=== PATIENT | female | born 1940 | race Caucasian/White ===

== ENCOUNTER → 2023-06-27 10:19 | Outpatient (REF) | payer MEDICARE, OTHER, SELFPAY ==
[2023-06-27 11:28] LABS: Hematocrit 35.2 % (37.0-47.0); Hemoglobin 11.5 g/dL (12.0-16.0); Mean Corp Hgb Conc. 32.7 g/dL (33.0-37.0); Mean Corpuscular Hgb 33.6 pg (27.0-31.0); Mean Corpuscular Volume 102.9 fL (81.0-99.0); Mean Platelet Volume 11.9 fL (7.4-10.4); Platelet Count 528 10^3/uL (130-400); Red Blood Cell Count 3.42 10^6/uL (4.20-5.40); Red Cell Dist. Width 13.8 % (11.5-14.5); White Blood Cell Count 9.9 10^3/uL (4.8-10.8)
== END ==
LOC: OLABN 10:19
PROVIDERS: ATTENDING PHYSICIAN Student in an Organized Health Care Education/Training Program
DX: M62.81 Muscle weakness (generalized) (principal)
CPT/HCPCS: 36415; 85027

== ENCOUNTER → 2023-11-26 12:09 | Outpatient (REF) | payer MEDICARE, OTHER, SELFPAY ==
[2023-11-26 13:54] LABS: Hematocrit 35.4 % (37.0-47.0); Hemoglobin 11.3 g/dL (12.0-16.0); Mean Corp Hgb Conc. 31.9 g/dL (33.0-37.0); Mean Corpuscular Hgb 32.7 pg (27.0-31.0); Mean Corpuscular Volume 102.3 fL (81.0-99.0); Mean Platelet Volume 11.9 fL (7.4-10.4); Platelet Count 554 10^3/uL (130-400); Red Blood Cell Count 3.46 10^6/uL (4.20-5.40); Red Cell Dist. Width 14.3 % (11.5-14.5); White Blood Cell Count 8.4 10^3/uL (4.8-10.8)
[2023-11-26 14:47] LABS: HDL Cholesterol 38 mg/dl; LDL Cholesterol, Calculated 40 mg/dl; Total Cholesterol 96 mg/dl (50-199); Triglyceride 92 mg/dl (10-149); Very Low Density Lipoprotein 18 mg/dl (0-30)
[2023-11-27 09:07] LABS: Glycohemoglobin (HgbA1c) 5.5 % (4.0-5.6)
== END ==
LOC: OLABN 12:09
PROVIDERS: ATTENDING PHYSICIAN Student in an Organized Health Care Education/Training Program
DX: E78.5 Hyperlipidemia, unspecified (principal); R10.0 Acute abdomen; Z79.84 Long term (current) use of oral hypoglycemic drugs
CPT/HCPCS: 80061; 83036; 85027

== ENCOUNTER → 2023-11-28 10:03 | Outpatient (REF) | payer MEDICARE, OTHER, SELFPAY ==
[2023-11-28 13:58] LABS: Iron 56 ug/dl (37-170)
[2023-11-28 14:08] LABS: Percent Saturation 21 % (20-50); Total Iron Binding Capacity 261 ug/dl (265-497)
[2023-11-28 14:53] LABS: Vitamin B12 490 pg/ml (239-931)
== END ==
LOC: OLABN 10:03
PROVIDERS: ATTENDING PHYSICIAN Student in an Organized Health Care Education/Training Program
DX: R83.8 Other abnormal findings in cerebrospinal fluid (principal); D51.0 Vitamin B12 deficiency anemia due to intrinsic factor deficiency; E53.8 Deficiency of other specified B group vitamins; E53.1 Pyridoxine deficiency
CPT/HCPCS: 36415; 82607; 83540; 83550; 84207

== ENCOUNTER → 2023-12-28 10:26 | Outpatient (REF) | payer MEDICARE, OTHER, SELFPAY ==
[2023-12-28 11:01] LABS: % Basophils 1.5 % (0-2); % Immature Granulocytes 0.2 % (0-0.5); % Lymphocytes 35.5 % (20.5-51.1); % Monocytes 8.2 % (1.7-9.3); % Neutrophils 50.6 % (42.2-75.2); Absolute Basophils 0.1 10^3/uL (0-0.2); Absolute Eosinophils 0.4 10^3/uL (0-0.7); Absolute Lymphocytes 3.3 10^3/uL (1.2-3.4); Absolute Monocytes 0.8 10^3/uL (0.1-0.6); Absolute Neutrophils 4.6 10^3/uL (1.4-6.5); Hematocrit 35.9 % (37.0-47.0); Hemoglobin 11.7 g/dL (12.0-16.0); Mean Corp Hgb Conc. 32.6 g/dL (33.0-37.0); Mean Corpuscular Hgb 32.9 pg (27.0-31.0); Mean Corpuscular Volume 100.8 fL (81.0-99.0); Mean Platelet Volume 12.4 fL (7.4-10.4); Nucleated Red Blood Cells % 0 %; Platelet Count 593 10^3/uL (130-400); Red Blood Cell Count 3.56 10^6/uL (4.20-5.40); Red Cell Dist. Width 14.4 % (11.5-14.5); White Blood Cell Count 9.2 10^3/uL (4.8-10.8)
[2023-12-28 11:59] LABS: Vitamin B12 480 pg/ml (239-931)
== END ==
LOC: OLABN 10:26
PROVIDERS: ATTENDING PHYSICIAN Student in an Organized Health Care Education/Training Program
DX: E53.1 Pyridoxine deficiency (principal); E78.5 Hyperlipidemia, unspecified; D51.9 Vitamin B12 deficiency anemia, unspecified
CPT/HCPCS: 36415; 82607; 84207; 85025

== ENCOUNTER → 2024-01-08 09:18 | Outpatient (REF) | payer MEDICARE, OTHER, SELFPAY ==
[2024-01-08 13:02] LABS: Folate 10.4 ng/ml (2.76-20)
== END ==
LOC: OLABN 09:18
PROVIDERS: ATTENDING PHYSICIAN Student in an Organized Health Care Education/Training Program
DX: D75.838 Other thrombocytosis (principal); Z79.899 Other long term (current) drug therapy
CPT/HCPCS: 36415; 82746

== ENCOUNTER → 2024-01-18 16:07 | Outpatient (REF) | payer MEDICARE, OTHER, SELFPAY ==
[2024-01-18 15:03] LABS: % Immature Granulocytes 0.4 % (0-0.5); % Lymphocytes 20.2 % (20.5-51.1); % Monocytes 7.2 % (1.7-9.3); % Neutrophils 68.2 % (42.2-75.2); Absolute Basophils 0.1 10^3/uL (0-0.2); Absolute Eosinophils 0.3 10^3/uL (0-0.7); Absolute Lymphocytes 2.1 10^3/uL (1.2-3.4); Absolute Monocytes 0.8 10^3/uL (0.1-0.6); Absolute Neutrophils 7.1 10^3/uL (1.4-6.5); Hematocrit 37.9 % (37.0-47.0); Hemoglobin 12.9 g/dL (12.0-16.0); Mean Corpuscular Hgb 33.9 pg (27.0-31.0); Mean Corpuscular Volume 99.7 fL (81.0-99.0); Mean Platelet Volume 11.2 fL (7.4-10.4); Nucleated Red Blood Cells % 0 %; Platelet Count 530 10^3/uL (130-400); Red Cell Dist. Width 14.1 % (11.5-14.5); White Blood Cell Count 10.4 10^3/uL (4.8-10.8)
[2024-01-18 15:15] LABS: Erythrocyte Sed Rate 35 mm/hour (0-20)
[2024-01-18 15:25] LABS: Iron 82 ug/dl (37-170)
[2024-01-18 15:34] LABS: Percent Saturation 29 % (20-50); Total Iron Binding Capacity 280 ug/dl (265-497)
[2024-01-18 16:02] LABS: Ferritin 13.6 ng/ml (11.1-264.0)
== END ==
LOC: OIDL 16:07
PROVIDERS: ATTENDING PHYSICIAN Nurse Practitioner Family
DX: D75.89 Other specified diseases of blood and blood-forming organs (principal); D51.9 Vitamin B12 deficiency anemia, unspecified
CPT/HCPCS: 82728; 83540; 83550; 85025; 85652

== ENCOUNTER → 2024-06-02 10:36 | Outpatient (REF) | payer MEDICARE, OTHER, SELFPAY ==
[2024-06-02 11:19] LABS: Hematocrit 37.3 % (37.0-47.0); Hemoglobin 11.4 g/dL (12.0-16.0); Mean Corp Hgb Conc. 30.6 g/dL (33.0-37.0); Mean Corpuscular Hgb 32.7 pg (27.0-31.0); Mean Corpuscular Volume 106.9 fL (81.0-99.0); Mean Platelet Volume 12.1 fL (7.4-10.4); Platelet Count 529 10^3/uL (130-400); Red Blood Cell Count 3.49 10^6/uL (4.20-5.40); Red Cell Dist. Width 14.1 % (11.5-14.5); White Blood Cell Count 9.9 10^3/uL (4.8-10.8)
[2024-06-02 11:29] LABS: ALT (SGPT) 19 U/L (0-35); AST (SGOT) 23 U/L (14-36); Albumin 3.4 g/dl (3.5-5.0); Alkaline Phosphatase 81 U/L (38-126); Blood Urea Nitrogen 23 mg/dl (7-17); Carbon Dioxide 28 mmol/L (22-30); Chloride 104 mmol/L (98-107); Glucose 78 mg/dl (70-99); HDL Cholesterol 41 mg/dl; LDL Cholesterol, Calculated 50 mg/dl; Potassium 4.7 mmol/L (3.5-5.1); Sodium 140 mmol/L (135-145); Total Bilirubin 0.6 mg/dl (0.2-1.3); Total Cholesterol 105 mg/dl (50-199); Total Protein 6.4 g/dl (6.3-8.2); Triglyceride 72 mg/dl (10-149); Very Low Density Lipoprotein 14 mg/dl (0-30); eGFR > 60.00
[2024-06-02 14:39] LABS: Glycohemoglobin (HgbA1c) 5.6 % (4.0-5.6)
== END ==
LOC: OLABN 10:36
PROVIDERS: ATTENDING PHYSICIAN Student in an Organized Health Care Education/Training Program
DX: E78.5 Hyperlipidemia, unspecified (principal); R10.0 Acute abdomen; R73.01 Impaired fasting glucose
CPT/HCPCS: 36415; 80053; 80061; 83036; 85027

== ENCOUNTER → 2024-07-22 15:05 | Outpatient (REF) | payer MEDICARE, OTHER, SELFPAY ==
[2024-07-22 16:47] LABS: Urine Albumin 1+ (Neg - Trace); Urine Bilirubin Negative (Negative); Urine Character Clear (Clear); Urine Color Yellow; Urine Glucose Negative (Negative); Urine Ketone Negative (Negative); Urine Leukocyte 3+ (Negative); Urine Nitrite Positive (Negative); Urine Occult Blood 1+ (Negative); Urine Urobilinogen Negative (Neg - 1+); Urine pH 6.5 (5.0-9.0)
[2024-07-22 16:57] LABS: Urine Squamous Cell >30 /LPF (Few); Urine White Cell 30-40 /HPF (0-5)
[2024-07-22 16:58] LABS: Urine Bacteria Many (Negative)
== END ==
LOC: OLABN 15:05
PROVIDERS: ATTENDING PHYSICIAN Student in an Organized Health Care Education/Training Program
DX: R30.0 Dysuria (principal)
CPT/HCPCS: 81003; 81015; 87077; 87086; 87186

== ENCOUNTER → 2024-09-25 13:30 | Outpatient (REF) | payer MEDICARE, OTHER, SELFPAY ==
[2024-09-25 17:04] LABS: Urine Albumin Negative (Neg - Trace); Urine Bilirubin Negative (Negative); Urine Character Slightly Cloudy (Clear); Urine Color Yellow; Urine Glucose Negative (Negative); Urine Ketone Negative (Negative); Urine Leukocyte 3+ (Negative); Urine Nitrite Negative (Negative); Urine Occult Blood Negative (Negative); Urine Specific Gravity 1.015 (<1.030); Urine Urobilinogen Negative (Neg - 1+)
[2024-09-25 17:17] LABS: Urine Bacteria Many (Negative); Urine Red Blood Cell 0-2 /HPF (0-2); Urine Squamous Cell >30 /LPF (Few)
== END ==
LOC: OLABN 13:30
PROVIDERS: ATTENDING PHYSICIAN Student in an Organized Health Care Education/Training Program
DX: R10.9 Unspecified abdominal pain (principal)
CPT/HCPCS: 81003; 81015; 87086

== ENCOUNTER → 2024-11-12 09:37 | Outpatient (REF) | payer MEDICARE, OTHER, SELFPAY ==
[2024-11-12 11:22] LABS: ALT (SGPT) 26 U/L (0-35); AST (SGOT) 25 U/L (14-36); Albumin 3.4 g/dl (3.5-5.0); Alkaline Phosphatase 89 U/L (38-126); Blood Urea Nitrogen 24 mg/dl (7-17); Calcium 8.9 mg/dl (8.4-10.2); Carbon Dioxide 26 mmol/L (22-30); Chloride 109 mmol/L (98-107); Glucose 84 mg/dl (70-99); Potassium 5.1 mmol/L (3.5-5.1); Sodium 140 mmol/L (135-145); Total Protein 6.4 g/dl (6.3-8.2); eGFR > 60.00
== END ==
LOC: OLABN 09:37
PROVIDERS: ATTENDING PHYSICIAN Student in an Organized Health Care Education/Training Program
DX: R10.0 Acute abdomen (principal); M62.81 Muscle weakness (generalized)
CPT/HCPCS: 36415; 80053

== ENCOUNTER → 2024-12-01 12:08 | Outpatient (REF) | payer MEDICARE, OTHER, SELFPAY ==
[2024-12-01 13:04] LABS: Hematocrit 36.8 % (37.0-47.0); Hemoglobin 11.6 g/dL (12.0-16.0); Mean Corp Hgb Conc. 31.5 g/dL (33.0-37.0); Mean Corpuscular Volume 104.0 fL (81.0-99.0); Platelet Count 524 10^3/uL (130-400); Red Cell Dist. Width 14.5 % (11.5-14.5)
[2024-12-01 13:32] LABS: ALT (SGPT) 31 U/L (0-35); AST (SGOT) 24 U/L (14-36); Albumin 3.5 g/dl (3.5-5.0); Alkaline Phosphatase 77 U/L (38-126); Blood Urea Nitrogen 26 mg/dl (7-17); Calcium 8.9 mg/dl (8.4-10.2); Carbon Dioxide 26 mmol/L (22-30); Chloride 109 mmol/L (98-107); Glucose 80 mg/dl (70-99); HDL Cholesterol 38 mg/dl; LDL Cholesterol, Calculated 48 mg/dl; Potassium 4.9 mmol/L (3.5-5.1); Sodium 138 mmol/L (135-145); Total Protein 6.5 g/dl (6.3-8.2); Very Low Density Lipoprotein 18 mg/dl (0-30); eGFR > 60.00
[2024-12-01 13:33] LABS: Glycohemoglobin (HgbA1c) 5.7 % (4.0-5.6)
== END ==
LOC: OLABN 12:08
PROVIDERS: ATTENDING PHYSICIAN Student in an Organized Health Care Education/Training Program
DX: M62.81 Muscle weakness (generalized) (principal); E78.5 Hyperlipidemia, unspecified; R10.9 Unspecified abdominal pain; R10.2 Pelvic and perineal pain; R73.01 Impaired fasting glucose
CPT/HCPCS: 36415; 80053; 80061; 83036; 85027

== ENCOUNTER → 2024-12-17 13:27 | Outpatient (REF) | payer MEDICARE, OTHER, SELFPAY ==
[2024-12-18 13:19] LABS: Urine Character Slightly Cloudy (Clear)
[2024-12-18 14:15] LABS: Urine Squamous Cell >30 /LPF (Few)
[2024-12-18 14:17] LABS: Urine White Cell 16-20 /HPF (0-5)
[2024-12-18 14:18] LABS: Urine Red Blood Cell 0-2 /HPF (0-2)
== END ==
LOC: OLABN 13:27
PROVIDERS: ATTENDING PHYSICIAN Student in an Organized Health Care Education/Training Program
DX: R10.30 Lower abdominal pain, unspecified (principal)
CPT/HCPCS: 81003; 81015; 87086

== ENCOUNTER → 2024-12-21 10:19 | Outpatient (REF) | payer MEDICARE, OTHER, SELFPAY ==
[2024-12-21 12:26] LABS: Urine Character Clear (Clear)
[2024-12-21 13:09] LABS: Urine Red Blood Cell 0-2 /HPF (0-2)
== END ==
LOC: OLABN 10:19
PROVIDERS: ATTENDING PHYSICIAN Student in an Organized Health Care Education/Training Program
DX: R10.30 Lower abdominal pain, unspecified (principal); R30.0 Dysuria
CPT/HCPCS: 81003; 81015; 87077; 87086

== ENCOUNTER → 2025-01-06 12:30 | Outpatient (REF) | payer MEDICARE, OTHER, SELFPAY ==
[2025-01-06 17:21] LABS: Urine Character Slightly Cloudy (Clear)
[2025-01-06 17:30] LABS: Urine Red Blood Cell 0-2 /HPF (0-2); Urine White Cell 21-25 /HPF (0-5)
== END ==
LOC: OLABN 12:30
PROVIDERS: ATTENDING PHYSICIAN Student in an Organized Health Care Education/Training Program
DX: R30.0 Dysuria (principal); R10.2 Pelvic and perineal pain
CPT/HCPCS: 81003; 81015; 87086; 87088

== ENCOUNTER → 2025-01-13 10:30 | Outpatient (REF) | payer MEDICARE, OTHER, SELFPAY ==
[2025-01-13 11:43] LABS: ALT (SGPT) 23 U/L (0-35); AST (SGOT) 24 U/L (14-36); Albumin 3.5 g/dl (3.5-5.0); Alkaline Phosphatase 76 U/L (38-126); Blood Urea Nitrogen 22 mg/dl (7-17); Calcium 8.8 mg/dl (8.4-10.2); Carbon Dioxide 26 mmol/L (22-30); Chloride 113 mmol/L (98-107); Glucose 86 mg/dl (70-99); Potassium 4.8 mmol/L (3.5-5.1); Sodium 142 mmol/L (135-145); Total Protein 6.4 g/dl (6.3-8.2); eGFR > 60.00
== END ==
LOC: OLABN 10:30
PROVIDERS: ATTENDING PHYSICIAN Student in an Organized Health Care Education/Training Program
DX: R10.0 Acute abdomen (principal); M62.81 Muscle weakness (generalized)
CPT/HCPCS: 36415; 80053

== ENCOUNTER → 2025-01-20 09:13 | Outpatient (REF) | payer MEDICARE, OTHER, SELFPAY ==
[2025-01-20 09:47] LABS: Hematocrit 37.0 % (37.0-47.0); Hemoglobin 11.9 g/dL (12.0-16.0); Mean Corp Hgb Conc. 32.2 g/dL (33.0-37.0); Mean Corpuscular Volume 103.6 fL (81.0-99.0); Nucleated Red Blood Cells % 0 %; Platelet Count 528 10^3/uL (130-400); Red Cell Dist. Width 13.9 % (11.5-14.5)
[2025-01-20 13:47] LABS: ALT (SGPT) 18 U/L (0-35); AST (SGOT) 21 U/L (14-36); Albumin 3.7 g/dl (3.5-5.0); Alkaline Phosphatase 76 U/L (38-126); Blood Urea Nitrogen 18 mg/dl (7-17); Calcium 9.5 mg/dl (8.4-10.2); Carbon Dioxide 29 mmol/L (22-30); Chloride 107 mmol/L (98-107); Glucose 88 mg/dl (70-99); Magnesium 2.0 mg/dl (1.6-2.3); Potassium 4.6 mmol/L (3.5-5.1); Sodium 141 mmol/L (135-145); Total Protein 6.7 g/dl (6.3-8.2); eGFR 54.87
== END ==
LOC: OLABN 09:13
PROVIDERS: ATTENDING PHYSICIAN Student in an Organized Health Care Education/Training Program
DX: I10 Essential (primary) hypertension (principal)
CPT/HCPCS: 36415; 80053; 83735; 85025

== ENCOUNTER → 2025-03-09 15:00 | Outpatient (REF) | payer MEDICARE, OTHER, SELFPAY ==
[2025-03-10 09:53] LABS: Urine Character Clear (Clear)
[2025-03-10 10:30] LABS: Urine White Cell 30-40 /HPF (0-5)
== END ==
LOC: OLABN 15:00
PROVIDERS: ATTENDING PHYSICIAN Student in an Organized Health Care Education/Training Program
DX: R30.0 Dysuria (principal); R10.10 Upper abdominal pain, unspecified
CPT/HCPCS: 81003; 81015; 87077; 87086